=== PATIENT | male | born 1950 | race Caucasian/White ===

== ENCOUNTER 2019-06-12 08:46 | Emergency (ER) | payer MEDICARE ==
[2019-06-12 09:45] LABS: ABS Eosinophils 0.1 10^3/ul (0-0.6); ABS Lymphocytes 1.2 10^3/ul (1.0-4.8); ABS Monocytes 0.4 10^3/ul (0-0.8); ABS Neutrophils 3.7 10^3/ul (1.5-7.7); Eosinophil % 1.3 %; Hematocrit 45 % (42-52); Hemoglobin 15.3 g/dL (14.0-18.0); Lymphocyte % 22.4 %; Mean Corpuscular HGB Conc 34 g/dL (31-36); Mean Corpuscular Hemoglobin 32 pg (27-31); Mean Corpuscular Volume 92 fL (80-94); Mean Platelet Volume 7.1 fL (7.4-10.4); Nucleated Red Blood Cells % 0.1; Platelet Count 273 10^3/uL (150-450); Red Blood Count 4.84 10^6 /uL (4.18-5.48); Red Cell Distribution Width 13 % (10-15); White Blood Count 5.4 10^3/uL (3.5-10.8)
[2019-06-12 10:08] LABS: Albumin 4.4 g/dL (3.2-5.2); Albumin/Globulin Ratio 1.6 (1-3); BUN/Creatinine Ratio 17.9 (8-20); CRP High Sensitivity 6.9 mg/L (<2.00); Calcium 9.6 mg/dL (8.6-10.3); EGFR African American 74.8 (>60); EGFR Non-African American 61.8 (>60); Globulin 2.7 g/dL (2-4); Potassium 4.4 mmol/L (3.5-5.0); Total Bilirubin 0.9 mg/dL (0.2-1.0); Total Protein 7.1 g/dL (6.4-8.9)
--- NOTE | 2019-06-12 10:09 | ED ---
Lower Extremity - HPI Summary HPI Summary: Pt is a 69 y/o M presenting to the ED with a chief complaint of lower extremity pain. He states he was cut by a zebra mussel a couple of weeks ago, and the cut developed into a erythematous edematous area in between his third and fourth toes. He states there is a small bump there, and the pain has spread throughout his whole body. At home, he has tried soaking in Epsom salts, but it has not worked. Sx aggravated by weight bearing and ambulation. - History of Current Complaint Chief Complaint: EDExtremityLower Stated Complaint: INFECTION TO TOE AND FOOT Time Seen by Provider: 06/12/19 09:32 Hx Obtained From: Patient Mechanism Of Injury: Other - zebra mussel Onset of Pain: Days Onset/Duration: Still Present Severity Initially: Mild Severity Currently: Moderate Pain Intensity: 5 Pain Scale Used: 0-10 Numeric Timing: Constant, Lasting Hours Location: Is Discrete @ - L third toe Associated Signs And Symptoms: Positive: Swelling, Redness Aggravating Factor(s): Ambulation, Weight Bearing Alleviating Factor(s): Rest Able to Bear Weight: Yes - Allergies/Home Medications Allergies/Adverse Reactions: Allergies Allergy/AdvReac Type Severity Reaction Status Date / Time Penicillins Allergy Unknown Verified 07/29/18 13:59 Reaction Details PMH/Surg Hx/FS Hx/Imm Hx Previously Healthy: Yes Endocrine/Hematology History: Denies: Hx Diabetes Cardiovascular History: Reports: Hx Hypercholesterolemia - "levels slightly elevated" Infectious Disease History: No Infectious Disease History: Denies: Traveled Outside the [place] in Last 30 Days - Family History Known Family History: Negative: Hypertension - Social History Alcohol Use: Rare Hx Substance Use: No Substance Use Type: Reports: None Hx Tobacco Use: No Smoking Status (MU): Never Smoked Tobacco Review of Systems Positive: Myalgia - L toe/foot, Edema - to L toe/foot Positive: Other - erythema to L toe All Other Systems Reviewed And Are Negative: Yes Physical Exam - Summary Physical Exam Summary: GENERAL: Patient is a well-developed and nourished M who is lying comfortable in the stretcher. Patient is not in any acute respiratory distress. HEAD AND FACE: Normocephalic EYES: PERRLA, EOMI x 2. EARS: Hearing grossly intact. MOUTH: Oropharynx within normal limits. NECK: Supple, trachea is midline, no adenopathy, no JVD, no carotid bruit. CHEST: Symmetric, no tenderness at palpation LUNGS: Clear to auscultation bilaterally. No wheezing or crackles. CVS: Regular rate and rhythm, S1 and S2 present, no murmurs or gallops appreciated. ABDOMEN: Soft, non-tender. Bowel sounds are normal. No abnormal abdominal pulsations. EXTREMITIES: Full ROM in all major joints, no edema, no cyanosis or clubbing. Erythema to third L toe with streaking on the dorsal aspect of the L foot. He also has a slice on the plantar aspect of the same area NEURO: Alert and oriented x 3. No acute neurological deficits. Speech is normal and follows commands. SKIN: Dry and warm Triage Information Reviewed: Yes Vital Signs On Initial Exam: Initial Vitals Temp Pulse Resp BP Pulse Ox 97.9 F 69 18 155/95 97 06/12/19 08:52 06/12/19 08:52 06/12/19 08:52 06/12/19 08:52 06/12/19 08:52 Vital Signs Reviewed: Yes Diagnostics - Vital Signs Vital Signs Temp Pulse Resp BP Pulse Ox 06/12/19 08:52 97.9 F 69 18 155/95 97 - Laboratory Lab Results: Lab Results 06/12/19 Range/Units 09:31 WBC 5.4 (3.5-10.8) 10^3/uL RBC 4.84 (4.18-5.48) 10^6 /uL Hgb 15.3 (14.0-18.0) g/dL Hct 45 (42-52) % MCV 92 (80-94) fL MCH 32 H (27-31) pg MCHC 34 (31-36) g/dL RDW 13 (10-15) % Plt Count 273 (150-450) 10^3/uL MPV 7.1 L (7.4-10.4) fL Neut % (Auto) 67.9 % Lymph % (Auto) 22.4 % [place] % (Auto) 7.6 % Eos % (Auto) 1.3 % Baso % (Auto) 0.8 % Absolute Neuts (auto) 3.7 (1.5-7.7) 10^3/ul Absolute Lymphs (auto) 1.2 (1.0-4.8) 10^3/ul Absolute Monos (auto) 0.4 (0-0.8) 10^3/ul Absolute Eos (auto) 0.1 (0-0.6) 10^3/ul Absolute Basos (auto) 0.0 (0-0.2) 10^3/ul Absolute Nucleated RBC 0.0 10^3/ul Nucleated RBC % 0.1 Result Diagrams: 06/12/19 09:31 06/12/19 09:31 Lab Statement: Any lab studies that have been ordered have been reviewed, and results considered in the medical decision making process. - Radiology Foot XR Radiology Interpretation Completed By: Radiologist Summary of Radiographic Findings: NO ACUTE OSSEOUS INJURY. NO RADIOPAQUE FOREIGN BODY. IF SYMPTOMS PERSIST, RECOMMEND REPEAT IMAGING. ED physician has reviewed this report. Lower Extremity Course/Dx - Course Course Of Treatment: Pt is a 69 y/o M presenting to the ED with a chief complaint of lower extremity pain. He states he was cut by a zebra mollusk a couple of weeks ago, and the cut developed into a erythematous edematous area in between his third and fourth toes. On exam, he has erythema to third L toe with streaking on the dorsal aspect of the L foot. He also has a slice on the plantar aspect of the same area. Foot XR shows: NO ACUTE OSSEOUS INJURY. NO RADIOPAQUE FOREIGN BODY. IF SYMPTOMS PERSIST, RECOMMEND REPEAT IMAGING. Pts lab results show MCH of 32, MPV of 7.1, and CRP of 6.90. All other lab results are WNL. In the ED course, the pt was given Bactrim to start him on abx, as well as a Tetanus booster, as he is unsure when he last received one. I was able to retrieve a foreign body that was probably a sting from the mussel, using 1cc of 1% lidocaine to numb the area and sterile technique at all times. The pt will be d/c'ed with dx of cellulitis and foreign body in the foot, and instructed to follow up with his primary care provider. He will also be sent home with Bactrim. He is hemodynamically stable and safe for discharge. Strict return precautions given. - Diagnoses Provider Diagnoses: Cellulitis, Foreign body in foot, left Discharge - Sign-Out/Discharge Documenting (check all that apply): Patient Departure Patient Received Moderate/Deep Sedation with Procedure: No - Discharge Plan Condition: Stable Disposition: HOME Prescriptions: Sulfamethox/Trimethoprim DS* [Bactrim DS 800/160 TAB*] 1 tab PO BID #14 tab Patient Education Materials: Cellulitis (ED) Referrals: Robert Grimm MD [Primary Care Provider] - Additional Instructions: Take your prescribed medications as instructed. Please follow up with your primary care provider within the next 2-3 days. Return to the emergency department with any new or worsening symptoms. - Billing Disposition and Condition Condition: STABLE Disposition: Home - Attestation Statements Document Initiated by Vladibcitlaly: Yes Documenting Scribe: Mary Fajardo Provider For Whom Umm is Documenting (Include Credential): Alma Liz MD. Scribe Attestation: Mary Lora scribed for Alma Liz MD. on 06/12/19 at 1254. Scribe Documentation Reviewed: Yes Provider Attestation: The documentation as recorded by the vladibeMary accurately reflects the service I personally performed and the decisions made by Rashard mcneal MD. Status of Scribe Document: Viewed
[2019-06-12] MEDS ORDERED: Tetan/Diph/Pertus SYR(Tdap)* 0.5 ML SYR(BOOSTRIX) use SYR contains LATEX IM ONE (10:20)
[2019-06-12] MEDS ORDERED: Sulfamethox/Trimethoprim DS 800/160* TAB PO ONE (10:20)
[2019-06-12 11:10] VITALS: BP 142/92
== END 2019-06-12 11:09 | disposition home or self-care (01) ==
LOC: ED 08:46
DX: L03.116 Cellulitis of left lower limb (principal); S90.852A Superficial foreign body, left foot, initial encounter; X58.XXXA Exposure to other specified factors, initial encounter; Y92.9 Unspecified place or not applicable; Z88.0 Allergy status to penicillin
CPT/HCPCS: 36415; 80053; 85025; 86141; 87040; 90471; 90715; 99282; A9270-GY